=== PATIENT | male | born 1960 | race Caucasian/White ===

== ENCOUNTER → 2024-09-25 | Outpatient (CLI) | payer SELFPAY ==
--- NOTE | 2024-09-25 12:30 | RAD_ITS ---
EXAM: XR Cervical Spine Flexion/Extension Only, 2 or 3 Views CLINICAL INDICATION: SEGMENTAL AND SOMATIC DYSFUNCTION OF LUMBAR REGION TECHNIQUE: Lateral flexion/extension views of the cervical spine. COMPARISON: No relevant prior studies available. FINDINGS: VERTEBRAE: Grade 1 anterior spondylolisthesis of L 4 over L5. Multilevel endplate degenerative changes, disc disease, anterior spurring and facet arthropathy of L3-S1. No acute fracture. DISC SPACES: No acute findings. No significant narrowing. SOFT TISSUES: Unremarkable. VASCULATURE: Scattered calcified atherosclerotic disease of aorta. RAD/L/S Spine Min 4 Views IMPRESSION: 1. Grade 1 anterior spondylolisthesis of L 4 over L5. 2. If symptoms persist, further evaluation with MRI is recommended. Reading Location: [facility]
== END | disposition home or self-care (01) ==
PROVIDERS: Referring Provider Chiropractor Orthopedic; Visit Provider Chiropractor Orthopedic
DX: M99.03 Segmental and somatic dysfunction of lumbar region (principal)
CPT/HCPCS: 72110